=== PATIENT | male | born 1990 | race Two or more races ===

== ENCOUNTER 2024-08-23 15:06 | Outpatient (AMB) | payer OTHER, SELFPAY ==
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
== END 2024-08-23 16:11 | disposition home or self-care (01) ==
PROVIDERS: Visit Provider Urology
DX: F52.4 Premature ejaculation (principal); N52.9 Male erectile dysfunction, unspecified
CPT/HCPCS: 99204

== ENCOUNTER → 2024-08-23 15:06 | Outpatient (BNVA) | payer OTHER, SELFPAY | PROVIDERS: Visit Provider Urology | DX: F52.4 Premature ejaculation (principal); N52.9 Male erectile dysfunction, unspecified | CPT/HCPCS: 81003; 99202 ==